=== PATIENT | female | born 1990 | race Caucasian/White ===

== ENCOUNTER → 2018-03-11 | Outpatient (CLI) | payer OTHER ==
--- NOTE | 2018-03-11 15:54 | RADIOLOGY REPORT (SQ) ---
EXAM DESCRIPTION: NM HIDA SCAN WITH CCK COMPLETED DATE/TIME: 03/11/2018 3:43 pm REASON FOR STUDY: R10.11 RIGHT UPPER QUADRANT PAIN R10.11 RIGHT UPPER QUADRANT PAIN COMPARISON: None. RADIONUCLIDE AND DOSE: DOSAGE RADIONUCLIDE: 5 millicuries Tc99m Mebrofenin. DOSAGE CCK: 1.9 micrograms. DOSAGE MORPHINE: Not required. The route of agent administration: Intravenous TECHNIQUE: Serial imaging right upper quadrant up to 60 minutes following injection of radionuclide. CCK injected after gallbladder visualized. LIMITATIONS: None. FINDINGS: LIVER: Normal visualization without areas of photopenia. INTRAHEPATIC BILE DUCTS: Normal size and no delay in visualization. COMMON BILE DUCT: Normal without dilatation. GALLBLADDER: Normal visualization. Calculated ejection fraction of 63%. Normal range is greater th an 35%. PHYSICAL RESPONSE: Patients presenting complaint was reproduced. OTHER: No other significant finding. IMPRESSION: Normal gallbladder ejection fraction of 63%. Patient's symptoms were reproduced with th e administration of CCK. TECHNICAL DOCUMENTATION: JOB ID: [id number] [employer]- All Rights Reserved Reading location - IP/workstation name: [email or web address]
== END ==
LOC: RAD 15:22
PROVIDERS: ATTEND Internal Medicine Gastroenterology
DX: R10.11 Right upper quadrant pain (principal)
CPT/HCPCS: 78227; J2805; A9537; Q9969

== ENCOUNTER 2018-03-14 09:05 | Day surgery (SDC) | payer OTHER ==
[~2018-03-14 09:05] MED LIST: EPINEPHRINE INJ 1 MG/10 ML DISP.SYRIN ONE; FLUMAZENIL INJ 0.5 MG/5 ML VIAL ONE; GLUCAGON,HUMAN RECOMB 1 MG INJ ONE; NALOXONE HCL INJ/PF 0.4 MG/1 ML SDV ONE; ONDANSETRON HCL INJ/PF 4 MG/2 ML SDV ONE
[2018-03-14] MEDS: MIDAZOLAM 2 MG/2 ML INJ ONE ×3 (09:12→09:20)
[2018-03-14] MEDS: FENTANYL CITRATE INJ/PF 100 MCG/2 ML AMPUL ONE ×3 (09:14→09:22)
[2018-03-14] MEDS ORDERED: ONDANSETRON HCL INJ/PF 4 MG/2 ML SDV ONE (11:31)
[2018-03-14] MEDS ORDERED: ACETAMINOPHEN 1,000 MG/100 ML RTUPB IV ONE ×2 (11:36→12:30)
[2018-03-14] MEDS ORDERED: PROPOFOL INJ 200 MG/20 ML VIAL IV ONE (12:29)
[2018-03-14] MEDS ORDERED: ONDANSETRON HCL INJ/PF 4 MG/2 ML SDV IV ONE (12:30)
[2018-03-14 13:54] VITALS: BP 102/63
--- NOTE | 2018-03-14 16:49 | Operative Report ---
Operative Report DATE OF SURGERY: 03/14/18 Operative Report: The risks benefits and alternatives of the procedure explained to the patient in detail and informed consent is obtained.A GIF Olympus video scope was inserted into the patient's mouth and hypopharynx, the esophagus is identified intubated and insufflated, the scope was then advanced through the esophagus stomach and duodenum, retroflexion maneuver is done the esophagus stomach and first and second portions of the duodenum examined PREOPERATIVE DIAGNOSIS: Epigastric pain POSTOPERATIVE DIAGNOSIS: Gastritis status post biopsy rule out Helicobacter pylori OPERATION: EGD with biopsy SURGEON: QUIQUE VIDAL ANESTHESIA: Moderate Sedation - Patient was unable to tolerate conscious sedation and had to be taken to the operating room for propofol sedation TISSUE REMOVED OR ALTERED: As noted above COMPLICATIONS: None. ESTIMATED BLOOD LOSS: None. INTRAOPERATIVE FINDINGS: As noted above. PROCEDURE: Patient tolerated the procedure well. No immediate postprocedure comp occasions are noted. Patient discharged in good condition. Discharge date 03/14/2018. Discharge diet: Regular. Discharge activity: Regular. 2-3-week follow-up to discuss findings. Patient is instructed call the office or proceed to the emergency room should there be any further proximal questions. Wait on the pathology.
== END 2018-03-14 14:00 | disposition home or self-care (01) ==
LOC: END 09:05
PROVIDERS: ATTEND Internal Medicine Gastroenterology
DX: K29.50 Unspecified chronic gastritis without bleeding (principal); K21.9 Gastro-esophageal reflux disease without esophagitis; J45.909 Unspecified asthma, uncomplicated; E66.8 Other obesity; M79.7 Fibromyalgia; E07.9 Disorder of thyroid, unspecified; E89.0 Postprocedural hypothyroidism; G43.909 Migraine, unspecified, not intractable, without status migrainosus; Z68.36 Body mass index [BMI] 36.0-36.9, adult; Z79.1 Long term (current) use of non-steroidal anti-inflammatories (NSAID); Z88.0 Allergy status to penicillin; Z88.6 Allergy status to analgesic agent
CPT/HCPCS: 43239; 88305 ×2; J2250; J3010; J2405; J2704; J0131; 43235; 731; J0171; J1610; J2310; J3490

== ENCOUNTER → 2018-06-10 | Outpatient (CLI) | payer OTHER | LOC: OD 11:34 | PROVIDERS: ATTEND Surgery | DX: K29.00 Acute gastritis without bleeding (principal); Z53.8 Procedure and treatment not carried out for other reasons | CPT/HCPCS: 87045; 87205 ==

== ENCOUNTER 2018-07-23 21:53 | Emergency (ER) | payer OTHER ==
[2018-07-23 22:20] VITALS: BP 130/85
[2018-07-23] MEDS ORDERED: ONDANSETRON 4 MG TAB.RAPDIS PO ONE (23:00)
--- NOTE | 2018-07-23 23:01 | ER Document Report ---
ED Medical Screen (RME) - General Chief Complaint: Abdominal Pain Stated Complaint: LOWER RIGHT QUADRANT PAIN,VOMITING Time Seen by Provider: 07/23/18 22:57 Primary Care Provider: JOHNATHAN MARTÍNEZ [Primary Care Provider] - Follow up as needed Mode of Arrival: Wheelchair Information source: Patient Notes: pt was preparign for colonoscopy, got 3/4 prep down, abdominal pain now, nauseated, no bowel movement now I have greeted and performed a rapid initial assessment of this patient. A comprehensive ED assessment and evaluation of the patient, analysis of test results and completion of the medical decision making process will be conducted by additional ED providers. TRAVEL OUTSIDE OF THE [place] IN LAST 30 DAYS: No - Related Data Allergies/Adverse Reactions: Penicillins Allergy (Severe, Verified 07/23/18 13:48) Swelling of Throat apple Allergy (Verified 07/23/18 13:51) egg Allergy (Verified 07/23/18 13:51) strawberry Allergy (Verified 07/23/18 13:51) Past Medical History - Past Medical History Cardiac Medical History: Denies: Hx Coronary Artery Disease, Hx Heart Attack, Hx Hypertension Pulmonary Medical History: Reports: Hx Asthma Denies: Hx Bronchitis, Hx COPD, Hx Pneumonia Neurological Medical History: Denies: Hx Cerebrovascular Accident, Hx Seizures Musculoskeltal Medical History: Denies Hx Arthritis Past Surgical History: Denies: Hx Hysterectomy - Immunizations Hx Diphtheria, Pertussis, Tetanus Vaccination: Yes Physical Exam - Vital signs Vitals: Temp Pulse Resp BP Pulse Ox 97.7 F 132 H 20 130/85 H 93 07/23/18 22:19 07/23/18 22:19 07/23/18 22:19 07/23/18 22:19 07/23/18 22:19 Course - Vital Signs Vital signs: Temp Pulse Resp BP Pulse Ox 97.7 F 132 H 20 130/85 H 93 07/23/18 22:19 07/23/18 22:19 07/23/18 22:19 07/23/18 22:19 07/23/18 22:19 Doctor's Discharge - Discharge Referrals: JOHNATHAN MARTÍNEZ [Primary Care Provider] - Follow up as needed
== END 2018-07-24 01:51 | disposition left against medical advice (07) ==
LOC: ER 21:53
DX: R10.31 Right lower quadrant pain (principal); R11.2 Nausea with vomiting, unspecified; Z88.0 Allergy status to penicillin; Z91.018 Allergy to other foods; Z91.012 Allergy to eggs; J45.909 Unspecified asthma, uncomplicated; Z90.710 Acquired absence of both cervix and uterus; Z53.20 Procedure and treatment not carried out because of patient's decision for unspecified reasons
CPT/HCPCS: 99281; S0119

== ENCOUNTER 2018-07-25 09:55 | Day surgery (SDC) | payer OTHER ==
[~2018-07-25 09:55] MED LIST changes: -EPINEPHRINE INJ 1 MG/10 ML DISP.SYRIN ONE; -FLUMAZENIL INJ 0.5 MG/5 ML VIAL ONE; -GLUCAGON,HUMAN RECOMB 1 MG INJ ONE; +MIDAZOLAM 2 MG/2 ML INJ ONE; -NALOXONE HCL INJ/PF 0.4 MG/1 ML SDV ONE; -ONDANSETRON HCL INJ/PF 4 MG/2 ML SDV ONE; +PROPOFOL INJ 200 MG/20 ML VIAL IV ONE
--- NOTE | 2018-07-25 12:25 | Operative Report ---
Operative Report DATE OF SURGERY: 07/25/18 Operative Report: The risks, benefits and alternatives of the procedure including the risk of bleeding, perforation requiring surgery have been explained to the patient in detail and informed consent has been obtained. Patient is brought back to the operating room and placed in a left, lateral decubital position. Timeout was called. Propofol medication is administered. Rectal examination is done which did not reveal any masses, tears or fissures. An Olympus videoscope was introduced into the patient's rectum. The scope was then carefully advanced all the way to the cecum. The cecum was identified by the usual anatomical landmarks including the ileocecal valve as well as the appendiceal office. Photodocumentation is obtained. The scope was then sequentially pulled back via the various segments of the colon including the ascending colon, hepatic flexure, transverse colon, splenic flexure, descending colon and finally into the rectosigmoid portions of the colon. Retroflexion maneuver was performed. I did intubate the terminal ileum. PREOPERATIVE DIAGNOSIS: Patient referred for colonoscopy from Dr. Roe surgery. It is ongoing workup for the patient it was discovered that she had lymph nodes on the right side of the abdominal cavity. Colonoscopy indicated to rule out for any potential right-sided lesion and or possible Crohn's disease POSTOPERATIVE DIAGNOSIS: Random biopsies taken in the terminal ileum which otherwise appeared to be normal rule out Crohn's disease. Right colon biopsy status post lymphocytic, microscopic collagenous colitis. No evidence of any diverticulosis, ulcerative colitis or any other signs of inflammation. OPERATION: Colonoscopy with biopsy SURGEON: QUIQUE VIDAL ANESTHESIA: LMAC TISSUE REMOVED OR ALTERED: As noted above. COMPLICATIONS: None. ESTIMATED BLOOD LOSS: None. INTRAOPERATIVE FINDINGS: As noted above. PROCEDURE: Patient tolerated the procedure well. No immediate postprocedure complications are noted. Patient discharged in good condition. Discharge date 07/25/2018. Discharge diet: Regular. Discharge activity: Regular. 2-3-week follow-up to discuss findings. Patient is instructed to call the office or proceed to the emergency room should there be any further proximal questions. Wait on the pathology.
[2018-07-25] MEDS ORDERED: PROPOFOL INJ 200 MG/20 ML VIAL IV ONE (12:26)
[2018-07-25 12:27] VITALS: BP 122/79
[2018-07-25] MEDS ORDERED: SIMETHICONE 80 MG TAB.CHEW ONE (12:45)
[2018-07-25] MEDS ORDERED: ACETAMINOPHEN 325 MG TABLET ONE (13:19)
== END 2018-07-25 13:50 | disposition home or self-care (01) ==
LOC: OROUT 09:55
PROVIDERS: ATTEND Internal Medicine Gastroenterology
DX: K52.9 Noninfective gastroenteritis and colitis, unspecified (principal); J45.909 Unspecified asthma, uncomplicated; E07.9 Disorder of thyroid, unspecified
CPT/HCPCS: 45380; 81025; 88305 ×2; J2250; J2704; 812

== ENCOUNTER 2018-08-14 11:01 | Day surgery (SDC) | payer OTHER ==
[~2018-08-14 11:01] MED LIST changes: +BUPIVACAINE HCL 0.25 % INJ/PF (2.5 MG/1 ML) 30 ML VIAL ONE; +DEXAMETHASONE SOD PHOSPHATE INJ 4 MG/1 ML VIAL ONE; +GLYCOPYRROLATE 1 MG/5 ML SYRINGE ONE; +LIDOCAINE 2% INJ-PF (20 MG/ML) 2 ML AMPUL ONE; -MIDAZOLAM 2 MG/2 ML INJ ONE; +NEOSTIGMINE METHYLSULFATE 10 MG/10 ML VIAL ONE; +ONDANSETRON HCL INJ/PF 4 MG/2 ML SDV ONE; -PROPOFOL INJ 200 MG/20 ML VIAL IV ONE; +ROCURONIUM BROMIDE INJ 50 MG/5 ML VIAL IV ONE; +SUCCINYLCHOLINE CHLORIDE INJ 200 MG/10 ML VIAL ONE
[2018-08-14 12:30] LABS: HEMATOCRIT 41.6 % (36.0-47.0); HEMOGLOBIN 14.6 g/dL (12.0-15.5); MEAN CORPUSCULAR HEMOGLOBIN 29.6 pg (27.0-33.4); MEAN CORPUSCULAR HGB CONC 35.1 g/dL (32.0-36.0); MEAN CORPUSCULAR VOLUME 84 fl (80-97); PLATELET COUNT 357 10^3/uL (150-450); RED BLOOD COUNT 4.94 10^6/uL (3.72-5.28); RED CELL DISTRIBUTION WIDTH 12.6 % (11.5-14.0); WHITE BLOOD COUNT 10.5 10^3/uL (4.0-10.5)
[2018-08-14 12:59] LABS: ALANINE AMINOTRANSFERASE 36 U/L (9-52); ALBUMIN 4.2 g/dL (3.5-5.0); ALKALINE PHOSPHATASE 82 U/L (38-126); ANION GAP 8 (5-19); ASPARTATE AMINO TRANSFERASE 28 U/L (14-36); BILIRUBIN,DIRECT 0.2 mg/dL (0.0-0.4); BILIRUBIN,TOTAL 0.7 mg/dL (0.2-1.3); BLOOD UREA NITROGEN 11 mg/dL (7-20); CARBON DIOXIDE 24 mmol/L (22-30); CHLORIDE 108 mmol/L (98-107); GLUCOSE 81 mg/dL (75-110); POTASSIUM 4.5 mmol/L (3.6-5.0); SODIUM 140.2 mmol/L (137-145); TOTAL PROTEIN 7.3 g/dL (6.3-8.2)
[2018-08-14] MEDS ORDERED: SCOPOLAMINE HYDROBROMIDE 1.5 MG PATCH.TD72 ONE (13:04)
[2018-08-14] MEDS ORDERED: ALBUTEROL SULFATE 0.083% NEB 2.5 MG/3 ML AMPUL NEB ONE (13:04)
[2018-08-14] MEDS ORDERED: FAMOTIDINE INJ/PF 20 MG/2 ML SDV IV ONE (13:04)
[2018-08-14] MEDS ORDERED: MIDAZOLAM 2 MG/2 ML INJ ONE ×2 (13:20→13:27)
[2018-08-14] MEDS ORDERED: SUGAMMADEX SODIUM 200 MG/2 ML SDV IV ONE (13:27)
[2018-08-14] MEDS ORDERED: FENTANYL CITRATE INJ/PF 100 MCG/2 ML AMPUL ONE (13:27)
[2018-08-14] MEDS ORDERED: ACETAMINOPHEN 1,000 MG/100 ML RTUPB IV ONE (13:28)
[2018-08-14] MEDS ORDERED: ACETAMINOPHEN 0 MG/0 ML RTUPB IV ONE (13:28)
[2018-08-14] MEDS ORDERED: HYDROMORPHONE HCL INJ/PF 2 MG/ML AMPULE ONE ×2 (13:28→17:00)
[2018-08-14] MEDS ORDERED: PROPOFOL INJ 200 MG/20 ML VIAL IV ONE (13:28)
[2018-08-14] MEDS ORDERED: IBUPROFEN 800 MG in NORMAL SALINE 250 ML IV PRN (14:21)
[2018-08-14] MEDS ORDERED: CLINDAMYCIN 900 MG/D5W RTU 900 MG/50 ML RTUPB IV ONE (14:30)
[2018-08-14] MEDS ORDERED: PROMETHAZINE HCL INJ 25 MG/1 ML VIAL IV PRN (14:59)
[2018-08-14] MEDS ORDERED: FENTANYL CITRATE INJ/PF 100 MCG/2 ML AMPUL IV PRN ×3 (14:59)
[2018-08-14] MEDS ORDERED: DIPHENHYDRAMINE HCL 50 MG/ML VIAL IV PRN (14:59)
[2018-08-14] MEDS ORDERED: PROMETHAZINE HCL INJ 25 MG/1 ML VIAL ONE (16:14)
--- NOTE | 2018-08-14 16:14 | Discharge Summary ---
Discharge Summary (SDC) - Discharge Final Diagnosis: Gallbladder sludge, symptomatic Date of Surgery: 08/14/18 Discharge Date: 08/14/18 Condition: Stable Treatment or Instructions: Discharge home. Diet as tolerated. Activity: No lifting greater than 10 pounds x 2 weeks. Follow-up with me in 7-10 days. [place] 10/325 mg p.o. every 6 hours as needed for pain. Okay to shower in 48 hours. No tub baths, swimming pools, or hot tubs times 2 weeks. Referrals: FEI CHEN SENIOR DATA MODELER [Primary Care Provider] - Discharge Diet: As Tolerated Respiratory Treatments at Home: Deep Breathing/Coughing, Incentive Spirometer Discharge Activity: No Lifting Over 10 Pounds Home Care Assistance: None Needed Report the Following to Your Physician Immediately: Shortness of Breath, Nausea, Vomiting, Increase in Pain, Yellow Skin, Fever over 101 Degrees, Unusual Bleeding, Redness
--- NOTE | 2018-08-14 16:18 | Operative Report ---
Nonrecallable Operative Report DATE OF SURGERY: 08/14/18 PREOPERATIVE DIAGNOSIS: Symptomatic gallbladder sludge POSTOPERATIVE DIAGNOSIS: Same as above OPERATION: Laparoscopic cholecystectomy SURGEON: FLORENCIA MOREL ANESTHESIA: GA TISSUE REMOVED OR ALTERED: Gallbladder COMPLICATIONS: None apparent ESTIMATED BLOOD LOSS: Minimal PROCEDURE: Drains/implants: None. Procedure in detail: After informed consent was obtained, the patient was brought to the operating room and laid in the supine position. The area of the abdomen was prepped and draped in a normal sterile fashion. A 15 blade scalpel was used to create a supraumbilical incision. It was deepened to the use of sharp and blunt dissection. The cicatrix was identified, grasped with a Alan clamp, and retracted upwards. The linea alba fascia was incised sharply, the abdomen was entered sharply. The balloon trocar was inserted, and pneumoperitoneum was achieved. A subxiphoid 5 Ceja port was placed under direct laparoscopic visualization. 2 more 5 mm ports were placed in the right upper quadrant in similar fashion. Atraumatic graspers were placed through the 5 mm ports. The gallbladder was retracted cephalad and laterally. Dissection was begun in the triangle of [place]ot. The cystic duct and cystic artery were fully visualized and skeleto nized, seeing the liver through the triangle. Once the critical view of safety was obtained, the cystic duct and cystic artery were clipped and cut with laparoscopic instruments. The gallbladder was removed from the liver using Bovie electrocautery. The gallbladder was grasped with a large clamp and pulled out the umbilicus. The camera was then reinserted, and the hilum was inspected. The hilum was found to be free of any leakage of blood or bile. Once this was confirmed, the abdomen was copiously irrigated and suctioned until the effluent was clear. The 5 mm trochars were removed under direct laparoscopic visualization. The supraumbilical trocar was removed, and pneumoperitoneum was relieved. The supraumbilical fascia was closed using 0 Vicryl suture in [id number] fashion. The overlying skin was closed using 4-0 Vicryl Rapide suture in subcuticular fashion. Dressings were placed, and the procedure was concluded. All sponge, instrument, needle counts were correct x2. Condition: Stable.
[2018-08-14] MEDS ORDERED: SIMETHICONE 80 MG TAB.CHEW ONE (17:24)
[2018-08-14] MEDS ORDERED: HYDROCODONE/ACETAMINOPHEN 10-325 MG TABLET ONE (17:53)
[2018-08-14 19:30] VITALS: BP 122/81
== END 2018-08-14 19:20 | disposition home or self-care (01) ==
LOC: OROUT 11:01
PROVIDERS: ATTEND Surgery
DX: K80.10 Calculus of gallbladder with chronic cholecystitis without obstruction (principal); R00.0 Tachycardia, unspecified; E89.0 Postprocedural hypothyroidism; J45.20 Mild intermittent asthma, uncomplicated; Z79.899 Other long term (current) drug therapy; Z88.0 Allergy status to penicillin
CPT/HCPCS: 36415; 85027; 81025; 80053; 88304 ×2; 47562; J2250; J3490 ×3; J1100; J3010; J1170; J2550; J0330; J2405; J7050; J2704; S0028; J0131; J1741; 790